=== PATIENT | female | born 1945 | race Caucasian/White ===

== ENCOUNTER 2019-01-27 11:39 | Outpatient (CLI) | payer MEDICARE ==
--- NOTE | 2019-01-27 14:24 | MMO ---
Bilateral MAMMO Bilat Screen [facility]. CLINICAL HISTORY: Patient is 74 years old and is seen for screening. VIEWS: The views performed were: . FILMS COMPARED: The present examination has been compared to prior imaging studies performed at [facility] on 10/21/2012, 11/03/2013, 11/19/2014 and 11/30/2015. This study has been interpreted with the assistance of computer-aided detection. MAMMOGRAM FINDINGS: The breasts are heterogeneously dense, which could obscure a lesion on mammography. There are stable benign appearing calcifications seen in both breasts. There are no suspicious masses, suspicious calcifications, or new areas of architectural distortion. IMPRESSION: THERE IS NO MAMMOGRAPHIC EVIDENCE OF MALIGNANCY. A ROUTINE FOLLOW-UP MAMMOGRAM IN 1 YEAR IS RECOMMENDED. THE RESULTS OF THIS EXAM WERE SENT TO THE PATIENT. ACR BI-RADS Category 2 - Benign finding MAMMOGRAPHY NOTE: 1. A negative mammogram report should not delay a biopsy if a dominant of clinically suspicious mass is present. 2. Approximately 10% to 15% of breast cancers are not detected by mammography. 3. Adenosis and dense breasts may obscure an underlying neoplasm. Reported by: CAPRI PEÑA MD Electonically Signed: [id number]
== END 2019-01-27 11:40 | disposition home or self-care (01) ==
LOC: BICMAMMO 11:39
PROVIDERS: ATTEND Family Medicine
DX: Z12.31 Encounter for screening mammogram for malignant neoplasm of breast (principal)
CPT/HCPCS: 77063; 77067

== ENCOUNTER 2019-03-27 06:29 | Outpatient (CLI) | payer MEDICARE ==
[2019-03-27 10:21] LABS: INR-International Normal Ratio 0.9; PTT 26.9 SEC (22.9-36.1); Prothrombin Time 12.3 SEC (12.0-14.7)
[2019-03-27 10:26] LABS: #Eosinphils 0.2 thou/uL (0.0-0.7); #Lymphocytes 2.1 thou/uL (1.20-3.40); #Monocytes 0.7 thou/uL (0.11-0.59); #Neutrophils 3.7 thou/uL (1.40-6.50); %Basophils 0.7 % (0.0-1.0); %Eosinophils 3.5 % (0.0-10.0); %Neutrophils 54.8 % (42.0-75.0); Hemoglobin 14.3 g/dL (12.0-16.0); Mean Corpuscular Hemoglobin 32.7 pg (27.0-31.0); Mean Platelet Volume 7.4 fL (7.4-10.4); Platelet Count 242 thou/uL (130-400); Red Blood Cell (RBC) Count 4.36 mill/uL (4.20-5.40); White Blood Cell (WBC) Count 6.7 thou/uL (4.8-10.8)
[2019-03-27 10:29] LABS: Bacteria/HPF None Seen HPF (None Seen); Bilirubin 2+ (Negative); Blood, Urine Negative (Negative); Clarity Turbid (Clear); Glucose, Urine (Dipstick) Normal (Negative); Leukocyte 500 Leu/uL (Negative); Nitrite Negative (Negative); Protein, Urine (Dipstick) 30 mg/dL (Neg-Trace); Transitional Epithelial 0-3 HPF (None Seen); Urobilinogen Normal mg/dL (Less than 2); WBC/HPF 21-50 HPF (0-3)
[2019-03-27 10:30] LABS: RBC/HPF 0-3 HPF (0-3)
[2019-03-27 10:41] LABS: Anion Gap 11 mmol/L (10-20); BUN (Urea Nitrogen) 24 mg/dL (9.8-20.1); Calc. Creatinine Clearance 0 mL/min (70-130); Calcium 9.1 mg/dL (7.8-10.44); Carbon Dioxide 25 mmol/L (23-31); Chloride 104 mmol/L (98-107); Estimated GFR-MDRD 72; Glucose 94 mg/dL (83-110); Sodium 136 mmol/L (136-145)
== END 2019-03-27 06:30 | disposition home or self-care (01) ==
LOC: LABBT 06:29
PROVIDERS: ATTEND Orthopaedic Surgery
DX: Z01.818 Encounter for other preprocedural examination (principal); I96 Gangrene, not elsewhere classified
CPT/HCPCS: 80048; 81001; 85025; 85610; 85730; 87081; 93005; 93010

== ENCOUNTER 2019-04-08 08:09 | Day surgery (SDC) | payer MEDICARE ==
[2019-04-08] MEDS ORDERED: Tranexamic Acid 1,000 MG/10 ML VIAL ONE (08:34)
[2019-04-08] MEDS ORDERED: Sodium Chloride 0.9% 100 ML ONE (08:34)
[2019-04-08] MEDS ORDERED: Midazolam HCl 2 mg/2 ml Vial ONE (08:46)
[2019-04-08] MEDS ORDERED: Fentanyl 100 MCG/2 ML VIAL ONE ×3 (08:46→10:54)
[2019-04-08] MEDS ORDERED: HYDROcodone/Acetaminophen 10/325 mg Tablet PO PRN ×3 (09:00→09:25)
[2019-04-08] MEDS ORDERED: Promethazine HCl 25 MG/ML VIAL IM PRN ×2 (09:00→09:25)
[2019-04-08] MEDS ORDERED: diphenhydrAMINE 25 MG CAP PO PRN ×2 (09:00→16:41)
[2019-04-08] MEDS ORDERED: Zolpidem Tartrate 5 MG TAB PO PRN ×2 (09:00→09:25)
[2019-04-08] MEDS ORDERED: Ondansetron PF 4 MG/2 ML Vial IVP PRN ×2 (09:00→09:25)
[2019-04-08] MEDS ORDERED: Acetaminophen 325 MG TAB PO PRN ×2 (09:00→09:25)
[2019-04-08] MEDS ORDERED: Acyclovir 800 mg Tablet PO PRN (09:02)
[2019-04-08] MEDS ORDERED: Ropivacaine HCl/PF 250 ML in Premix Bag 1 BAG NERVE BLCK SCH (09:25)
[2019-04-08] MEDS ORDERED: traMADol HCl 50 MG TAB PO PRN ×2 (09:25)
[2019-04-08] MEDS ORDERED: Fentanyl 100 MCG/2 ML VIAL IV PRN (09:26)
[2019-04-08] MEDS ORDERED: Ropivacaine 0.2% HCl/PF (40 MG/20 ML VIAL) ONE (09:53)
[2019-04-08] MEDS ORDERED: Dexamethasone 20 MG/5 ML VIAL ONE (09:53)
[2019-04-08] MEDS ORDERED: EPHEDRINE 25 MG/5 ML SYRINGE ONE (09:53)
[2019-04-08] MEDS ORDERED: Lidocaine 1% PF 5 ML VIAL ONE (09:53)
[2019-04-08] MEDS ORDERED: PROPOFOL 200 MG/20 ML VIAL ONE (09:53)
[2019-04-08] MEDS ORDERED: PHENYLEPHRINE-NS 100 MCG/ML 10 ML SYRINGE ONE (09:53)
[2019-04-08] MEDS ORDERED: Bupivacaine HCl 0.5%/Epinephrine 1:200,000/PF 30 ml Vial ONE (09:53)
--- NOTE | 2019-04-08 11:04 | OP ---
DATE OF PROCEDURE: 04/08/2019 This is Fritz Estrada PA-C dictating a report for Chaparro Grimm MD. PREOPERATIVE DIAGNOSIS: End-stage tricompartmental osteoarthritis, left knee. POSTOPERATIVE DIAGNOSIS: End-stage tricompartmental osteoarthritis, left knee. PROCEDURE PERFORMED: Cemented cruciate-sparing computer-assisted navigated left total knee arthroplasty. CONTINUOUS PROCESS COFFEE ROASTER: Fritz Estrada PA-C ANESTHESIA: General via LMA, augmented with indwelling adductor canal block and a single-shot sciatic block. COMPONENTS USED: [employer] Triathlon size 3 primary cemented cruciate-sparing femoral component with a size 3 primary cemented tibial base plate, 9 mm polyethylene fixed bearing insert, A29 patella button. TOURNIQUET TIME: 49 minutes at 300 mmHg ESTIMATED BLOOD LOSS: Less than 100. INPUT: 700 mL crystalloid. OUTPUT: 100 mL of clear yellow urine. COMPLICATIONS: None. SPECIMENS: None. DRAINS: None. COUNTS: Correct. FINDINGS: End-stage severe degenerative tricompartmental disease, [id number] arthrosis, periarticular osteophyte formation, large serous effusion hypertrophic synovium, changes consistent with degenerative genu varum. INDICATIONS FOR SURGERY: Abby is a 74-year-old female who has had progressive left knee pain and problems with standing and walking for the last 5 to 7 years. She has failed conservative management and elected to proceed with total knee arthroplasty as definitive treatment for her pain. PROCEDURE IN DETAIL: After informed consent was obtained in the preoperative holding area, the patient was taken to the operative suite where general anesthesia was induced. Once adequate level of general anesthesia was obtained, the patient was positioned and a well-padded tourniquet was placed around the left proximal thigh. The left lower extremity was then prepped and draped in the usual sterile fashion. Prior to exsanguination, a time-out was called and all members of the surgical team agreed upon site, surgeon, and patient. The extremity was then exsanguinated and the tourniquet was raised. A midline longitudinal incision was then made directly over the patella extending 2 fingerbreadths above the superior pole of the patella and 2 fingerbreadths inferior to the inferior patellar pole of the patella. Deeper subcutaneous layers were dissected sharply and local bleeding was controlled with Bovie electrocautery. A quad tendon longitudinal split was then made sharply and a median parapatellar arthrotomy was carried out both sharp and with Bovie electrocautery, carried down to 1 fingerbreadth medial to the tibial tubercle. The knee was then placed into flexion and the patella was everted nicely, and a copious fat pad ectomy was performed allowing for greater exposure of the tibia. The computer-assisted distal femoral fiducial was then placed and pinned firmly, and the distal femoral cutting guide was pinned firmly into place. The oscillating saw was then used to remove the appropriate amount of bone. The 4-in-1 cutting block was then placed on the distal femur and the oscillating saw was used to remove the appropriate amount of bone off the anterior, posterior, and chamfer cuts. After completion of bone cuts, the anterior cruciate ligament was resected sharply and the posterior cruciate ligament retractor was placed and the tibia was subluxed for better exposure. Partial meniscectomies were carried out, and the tibial computer-assisted fiducial was pinned, and the cutting guide was placed. Oscillating saw was then used to remove the bone, with Hohmann retractors used to take care and protect the collateral ligaments. After the tibial resection was performed, a laminar commercial counsel was placed in between the freshened bone cuts. The knee placed at 90 degrees and further bilateral meniscectomies were carried out, and the curved osteotome and curettage were used to remove any excess bone spurs in the posterior compartment. The trial femoral component, tibial baseplate were placed with the appropriate polyethylene trial insert with an appropriate polyethylene spacer and patellar button. The knee was taken through full range of motion with flexion and extension from 0 to 90 degrees and patellar broach squarely in the trochlea without any squinting or subluxation noted. The knee was also stable to varus and valgus stressing at 0, 15, 45, and 90 degrees of flexion. The drawer was negative. All trial components were then removed and the keel punch was used to provide the appropriate defect in the tibia with a mallet. The freshened bone cuts were copiously irrigated with pulsatile lavage of about 1.5 L to remove all excess debris. The freshened bone cuts were then dried with suction and lap sponge. The knee was placed in flexion and retractors were placed to provide access to all bone cuts. Tobramycin-impregnated methyl methacrylate cement was then placed on the freshened bone cuts and implants which were malleted firmly into place. Curettage and [place] elevators were used to remove any excess bone cement. The knee was placed into full extension and the patellar button was placed under compression, and the cement was allowed to cure. Once completed, the components were again taken through full range of motion and copious irrigation of the knee was carried out with another liter of normal saline. All components were inspected fully with full range of motion and varus and valgus stressing. There was no laxity noted and full extension was observed clinically. Primary closure was accomplished with #2 interrupted Vicryl stitch of the arthrotomy defect. This was oversewn with a #2 running Quill barbed stitch. The subcutaneous layer was then closed with a running 0 barbed Monocryl stitch and skin closure accomplished with a running subcuticular 3-0 Monocryl barbed Quill stitch and augmented with cement on the skin. Tourniquet was lowered. Good spontaneous return of distal pulses was noted clinically and a sterile dressing was applied to the incision. The procedure was terminated without any complications. The patient was awakened in the operative suite and taken to the recovery room in stable condition. Job ID: [id number]
--- NOTE | 2019-04-08 12:00 | RAD ---
LEFT KNEE 2 VIEWS: Date: 04/08/2019 HISTORY: Postop evaluation. Knee replacement. FINDINGS: Postop changes are noted. Knee replacement is noted. Components appear in adequate position and align ment. IMPRESSION: Postop changes of knee. POS: [facility]
[2019-04-08] MEDS: Sodium Chloride 0.9% 1,000 ML IV SCH ×2 (12:07→12:22)
[2019-04-08] MEDS: Aspirin 81 mg Enteric Coated Tablet PO SCH ×2 (12:07→21:14)
[2019-04-08] MEDS: Trospium 20 MG TAB PO SCH ×2 (12:18→21:14)
[2019-04-08] MEDS: Ketorolac Tromethamine 30 MG/ML VIAL IVP SCH ×2 (12:22→17:31)
[2019-04-08 13:25] VITALS: BMI 32.1
[2019-04-08] MEDS ORDERED: Ketorolac Tromethamine 30 MG/ML VIAL IVP SCH (14:00)
[2019-04-08] MEDS ORDERED: Benzonatate 100 MG CAP PO PRN (16:41)
[2019-04-08] MEDS ORDERED: Labetalol HCl 100 MG/20 ML VIAL SLOW IVP PRN (16:41)
[2019-04-08] MEDS ORDERED: Melatonin 3 MG TAB PO PRN (16:41)
[2019-04-08] MEDS ORDERED: Docusate 100 MG CAP PO PRN (16:41)
[2019-04-08] MEDS: CEFAZOLIN 2 GM in Premix Bag 1 BAG IVPB SCH (16:42)
--- NOTE | 2019-04-08 18:14 | PDOC.HHP ---
Hospitalist HPI - History of Present Illness Severe knee pain History of Present Illness: 74-year-old female with past medical history of coronary artery disease, hypertension, hyperlipidemia, hypothyroidism, and severe osteoarthritis of the knee presents for elective knee replacement. Patient presents to the [facility] on 04/08/2019 elective total knee replacement of the left knee. Patient has been on medical therapies for severe neck knee arthritis without relief. Patient with ataxia and limitations to her activities of daily living secondary to severe knee pain. Has patient has failed medical management of the knee was warranted that she have knee replacement. Patient went to the operating room on 04/08/2019 please see full operative report for details, patient tolerated the procedure well without intraoperative complications. I find the patient in the surgical unit postoperatively she is sitting upright in the bed eating her dinner in no apparent distress. Patient tells me she has zero pain, the nerve block seems to be effective. Patient has not worked with therapy yet, she has not put any pressure on the knee. Patient has been using her incentive spirometry everyone our as directed after education by nursing staff. Patient has SCDs on the lower extremity. Hospitalist ROS - Review of Systems All other systems reviewed; all pertinent +/- noted in HPI/Subj - Medication Medications: Active Medications Generic Name Dose Route Start Last Admin Trade Name Freq PRN Reason Stop Dose Admin Aspirin 81 mg 04/08/19 09:00 04/08/19 12:07 Ecotrin PO Not Given BID BAILEE Cefazolin Sodium/Dextrose 2 gm 50 mls @ 100 mls/hr 04/08/19 17:00 04/08/19 16 :42 / Device IVPB 04/09/19 01:29 50 mls 0100,1700 BAILEE Administration Sodium Chloride 1,000 mls @ 100 mls/hr 04/08/19 09:00 04/08/19 12:22 Normal Saline 0.9% IV 1,000 mls .Q10H BAILEE Administration Ketorolac Tromethamine 15 mg 04/08/19 12:00 04/08/19 17:31 Toradol IVP 04/10/19 06:01 15 mg Q6HR BAILEE Administration Trospium 20 mg 04/08/19 09:00 04/08/19 12:18 Trospium PO Not Given BID BAILEE Hospitalist History - Past Medical History Source: patient, family Cardiac: reports: CAD, HTN, Hyperlipidemia Musculoskeletal: reports: Osteoarthritis Endocrine: reports: Hypothyroidism - Past Surgical History Past Surgical History: reports: Total Knee Replacement - Family History Family History: reports: hypertension - Social History Smoking Status: Never smoker Alcohol: reports: None Drugs: reports: none Living Situation: With Family Domestic Violence: Negative Activity level: independent ambulation - Exam General Appearance: NAD, awake alert Eye: PERRL ENT: normocephalic atraumatic, moist mucosa Neck: supple, symmetric, no lymphadenopathy Heart: no murmur, no gallops, no rubs Respiratory: CTAB, no wheezes, no rales, no ronchi, normal chest expansion, no tachypnea Gastrointestinal: soft, non-tender, non-distended, no guarding, no rigidity Extremities: 1+ LE edema Extremities - other findings: Left knee dressing is clean, dry, and intact. Ice pack over top Skin: no rashes Neurological: cranial nerve grossly intact, no focal deficits Musculoskeletal: generalized weakness Psychiatric: normal affect, normal behavior, A&O x 3 Hospitalist H&P A/P - Problem (1) Knee osteoarthritis Code(s): M17.10 - UNILATERAL PRIMARY OSTEOARTHRITIS, UNSPECIFIED KNEE Status: Acute (2) Knee pain Code(s): M25.569 - PAIN IN UNSPECIFIED KNEE Status: Acute (3) Ataxia Code(s): R27.0 - ATAXIA, UNSPECIFIED Status: Acute (4) HTN (hypertension) Code(s): I10 - ESSENTIAL (PRIMARY) HYPERTENSION Status: Acute (5) CAD (coronary artery disease) Code(s): I25.10 - ATHSCL HEART DISEASE OF [place] CORONARY ARTERY W/O ANG PCTRS Status: Acute (6) HLD (hyperlipidemia) Code(s): E78.5 - HYPERLIPIDEMIA, UNSPECIFIED Status: Acute (7) Hypothyroid Code(s): E03.9 - HYPOTHYROIDISM, UNSPECIFIED Status: Acute - Plan Plan: Plan: admit to orthopedic unit orthopedic surgery consultation, recommendations appreciated perioperative care wound care physical therapy evaluation and treatment occupational Therapy evaluation treatment pain control blood pressure control continue home medications as able G.I. prophylaxis DVT prophylaxis
[2019-04-08] MEDS ORDERED: guaiFENesin ER 600 MG TAB PO PRN (21:00)
[2019-04-08] MEDS: Atorvastatin Calcium 40 MG TAB PO SCH (21:14)
[2019-04-08] MEDS ORDERED: Ramipril 5 MG CAP PO SCH (23:45)
[2019-04-09] MEDS: Ketorolac Tromethamine 30 MG/ML VIAL IVP SCH ×4 (00:08→17:59)
[2019-04-09] MEDS: CEFAZOLIN 2 GM in Premix Bag 1 BAG IVPB SCH (00:09)
[2019-04-09] MEDS: Sodium Chloride 0.9% 1,000 ML IV SCH (04:44)
[2019-04-09] MEDS: Levothyroxine 150 MCG TAB PO SCH (05:48)
[2019-04-09] MEDS: Multivitamin W/ Minerals 1 TAB PO SCH (08:51)
[2019-04-09] MEDS: Ubidecarenone 50 MG CAP PO SCH (08:51)
[2019-04-09] MEDS: Calcium Carbonate 600 MG + Vit D TAB PO SCH (08:52)
[2019-04-09] MEDS: Vit A,C & E/Lutein/Minerals Tablet PO SCH (08:52)
[2019-04-09] MEDS: Loratadine 10 MG TAB PO SCH (08:52)
[2019-04-09] MEDS: Senokot S 8.6-50 MG TAB PO SCH ×2 (08:52→20:58)
[2019-04-09] MEDS: Aspirin 81 mg Enteric Coated Tablet PO SCH ×2 (08:53→20:57)
[2019-04-09] MEDS: Ferrous Gluconate 324 MG TAB PO SCH ×2 (08:53→20:58)
[2019-04-09] MEDS: HYDROcodone/Acetaminophen 10/325 mg Tablet PO PRN ×2 (08:57→14:17)
[2019-04-09] MEDS ORDERED: Ramipril 5 MG CAP PO SCH ×2 (09:00→21:00)
[2019-04-09] MEDS ORDERED: Non-Formulary Item 1 EACH (Multivitamin/Iron/Folic Acid [Centrum Adults Tablet] 1 EACH) PO SCH (09:00)
[2019-04-09] MEDS ORDERED: Aspirin 81 mg Enteric Coated Tablet PO SCH (09:00)
[2019-04-09] MEDS: Trospium 20 MG TAB PO SCH ×2 (09:37→20:57)
--- NOTE | 2019-04-09 13:42 | PDOC.HOSPP ---
- Subjective Encounter Date: 04/09/19 Encounter Time: 08:20 Subjective: Pt seen for followup re: hypertension. Feels well, no complaints. - Objective Vital Signs & Weight: Vital Signs (12 hours) Temp Pulse Resp BP Pulse Ox 04/09/19 13:00 98.0 F 66 106/63 93 L 04/09/19 08:00 98.3 F 79 18 125/88 95 04/09/19 04:11 98.6 F 70 16 123/75 96 Weight Weight 170 lb I&O: 04/08/19 04/09/19 04/10/19 06:59 06:59 06:59 Intake Total 2250 300 Output Total 1600 Balance 650 300 Additional Labs: Labs and MARs reviewed by ma Hospitalist ROS - Review of Systems Cardiovascular: denies: chest pain, palpitations, orthopnea, paroxysmal noc. dyspnea, edema, light headedness Gastrointestinal: denies: nausea, vomiting, abdominal pain, diarrhea, constipation, melena, hematochezia - Medication Medications: Active Medications Generic Name Dose Route Start Last Admin Trade Name Freq PRN Reason Stop Dose Admin Hydrocodone Bitart/Acetaminophen 2 tab 04/08/19 09:25 04/09/19 08:57 [place] 10/325 PO 2 tab Q4H PRN Administration PAIN (4-6) Aspirin 81 mg 04/08/19 09:00 04/09/19 08:53 Ecotrin PO 81 mg BID BAILEE Administration Atorvastatin Calcium 40 mg 04/08/19 21:00 04/08/19 21:14 Lipitor PO 40 mg HS BAILEE Administration Calcium/Vitamin D 1 tab 04/09/19 09:00 04/09/19 08:52 Caltrate 600 + Vit D PO 1 tab DAILY BAILEE Administration Coenzyme Q10 200 mg 04/09/19 09:00 04/09/19 08:51 Coenzyme Q10 PO 200 mg DAILY BAILEE Administration Diltiazem HCl 180 mg 04/09/19 09:00 04/09/19 08:51 Cardizem Cd PO 180 mg DAILY BAILEE Administration Ferrous Gluconate 324 mg 04/09/19 09:00 04/09/19 08:53 Fergon PO 324 mg BID BAILEE Administration Ropivacaine 250 ml/ Device 250 mls @ 10 mls/hr 04/08/19 09:25 04/09/19 11:36 NERVE BLCK 04/11/19 09:24 250 mls INF BAILEE Administration Iron/Minerals/Multivitamins 1 tab 04/09/19 09:00 04/09/19 08:51 Theragran M PO 1 tab DAILY BAILEE Administration Isosorbide Mononitrate 60 mg 04/09/19 09:00 04/09/19 08:53 Imdur PO 60 mg DAILY BAILEE Administration Ketorolac Tromethamine 15 mg 04/08/19 12:00 04/09/19 12:19 Toradol IVP 04/10/19 06:01 15 mg Q6HR BAILEE Administration Levothyroxine Sodium 150 mcg 04/09/19 06:00 04/09/19 05:48 Synthroid PO 150 mcg 0600 BAILEE Administration Loratadine 10 mg 04/09/19 09:00 04/09/19 08:52 Claritin PO 10 mg DAILY BAILEE Administration Multivitamins/Minerals 2 tab 04/09/19 09:00 04/09/19 08:52 Ocuvite With Lutein PO 2 tab DAILY BAILEE Administration Pantoprazole Sodium 40 mg 04/09/19 09:00 04/09/19 08:53 Protonix PO 40 mg DAILY BAILEE Administration Senna/Docusate Sodium 2 tab 04/09/19 09:00 04/09/19 08:52 Senokot S PO 2 tab BID BAILEE Administration Trospium 20 mg 04/08/19 09:00 04/09/19 09:37 Trospium PO 20 mg BID BAILEE Administration - Exam General - other findings: Obese Eye: anicteric sclera ENT: moist mucosa Neck: supple, symmetric Heart: RRR, no rubs Respiratory: CTAB, normal chest expansion Gastrointestinal: soft, non-tender Skin: no rashes Musculoskeletal - other findings: s/p L knee surgery Psychiatric: normal affect, normal behavior Hosp A/P - Plan Hospitalist H&P A/P - Assessment (1) HTN (hypertension) Code(s): I10 - ESSENTIAL (PRIMARY) HYPERTENSION Status: Chronic (2) CAD (coronary artery disease) Code(s): I25.10 - ATHSCL HEART DISEASE OF [place] CORONARY ARTERY W/O ANG PCTRS Status: Chronic (3) HLD (hyperlipidemia) Code(s): E78.5 - HYPERLIPIDEMIA, UNSPECIFIED Status: Chronic (4) Hypothyroid Code(s): E03.9 - HYPOTHYROIDISM, UNSPECIFIED Status: Chronic - Plan Physical therapy evaluation and treatment Occupational Therapy evaluation treatment HTN controlled Continue synthroid. DVT prophylaxis and pain management per orthopedic surgery service.
--- NOTE | 2019-04-09 14:06 | PRG ---
DATE OF SERVICE: 04/09/2019 SUBJECTIVE: Abby is a 74-year-old female, who is postop day 1 from a left total knee arthroplasty. She is relatively comfortable. She was able to ambulate over 100 feet yesterday. Her pain is relatively well controlled. OBJECTIVE: VITAL SIGNS: Temperature 98.3, pulse 79, respiratory rate is 18 and unlabored, O2 saturation 95% on room air, and blood pressure is 125/88. NEUROLOGIC: She is alert and oriented to person, place, time, and situation, responsive and appropriate with examiner. Nonfocal. Her incision is clean. No erythema. No strike through. She is neurovascularly intact in both lower extremities. LABORATORY DATA: Hemoglobin and hematocrit not obtained. IMPRESSION: A 74-year-old female, postop day 1 left total knee arthroplasty. PLAN: Continue current care. Probable discharge home tomorrow. Job ID: [id number]
[2019-04-09] MEDS: Atorvastatin Calcium 40 MG TAB PO SCH (20:58)
[2019-04-10] MEDS: Ketorolac Tromethamine 30 MG/ML VIAL IVP SCH ×2 (00:24→05:00)
[2019-04-10] MEDS: Levothyroxine 150 MCG TAB PO SCH (05:00)
[2019-04-10 05:12] LABS: Hemoglobin 11.3 g/dL (12.0-16.0)
[2019-04-10] MEDS: HYDROcodone/Acetaminophen 10/325 mg Tablet PO PRN ×2 (08:34→12:49)
[2019-04-10] MEDS: Senokot S 8.6-50 MG TAB PO SCH (08:36)
[2019-04-10] MEDS: Vit A,C & E/Lutein/Minerals Tablet PO SCH (08:36)
[2019-04-10] MEDS: Ubidecarenone 50 MG CAP PO SCH (08:36)
[2019-04-10] MEDS: Ferrous Gluconate 324 MG TAB PO SCH (08:37)
[2019-04-10] MEDS: Multivitamin W/ Minerals 1 TAB PO SCH (08:37)
[2019-04-10] MEDS: Calcium Carbonate 600 MG + Vit D TAB PO SCH (08:37)
[2019-04-10] MEDS: Loratadine 10 MG TAB PO SCH (08:37)
[2019-04-10] MEDS: Aspirin 81 mg Enteric Coated Tablet PO SCH (08:37)
[2019-04-10] MEDS: Trospium 20 MG TAB PO SCH (08:52)
[2019-04-10 10:45] VITALS: TEMP 98.2
[2019-04-10 14:27] VITALS: BP 142/72
--- NOTE | 2019-04-11 09:13 | DIS ---
DATE OF ADMISSION: 04/08/2019 DATE OF DISCHARGE: 04/10/2019 CONSULTANTS ON THE CASE: Include [facility] and [facility]. PREOPERATIVE DIAGNOSIS: End-stage tricompartmental osteoarthritis of the left knee. POSTOPERATIVE DIAGNOSIS: End-stage tricompartmental osteoarthritis of the left knee. PROCEDURE PERFORMED: Cemented cruciate sparing computer-assisted navigation, left total knee arthroplasty. BRIEF HOSPITAL COURSE: This is a 74-year-old female, who was indicated for the above-mentioned procedure after failing outpatient conservative measures. She did well in the operative suite and then postoperatively she was admitted to [facility] [address] [address] here at [facility]. She did work with physical and occupational therapist. She got out of bed on postoperative day 0 to stand. She did not have any difficulty with this and progressed quite nicely with occupational and physical therapy. Her pain was managed by [facility]. On postoperative day #2, the patient was discharged home with outpatient physical therapy followup. No complications were incurred throughout her hospital stay. DISCHARGE DISPOSITION: Home. DISCHARGE CONDITION: Stable. DISCHARGE INSTRUCTIONS: The patient will follow up as scheduled with Dr. Grimm. She will also follow up as scheduled with outpatient physical therapy. She will keep her surgical site clean, dry, and intact until her followup with Dr. Grimm. DISCHARGE MEDICATIONS: See FOX. Job ID: [id number]
== END 2019-04-10 14:35 | disposition home or self-care (01) ==
LOC: SDC 08:09 → SJJU 09:04 → SDC 04-10 14:35
PROVIDERS: ATTEND Orthopaedic Surgery
PROC: 0SRD0J9 Replacement of Left Knee Joint with Synthetic Substitute, Cemented, Open Approach (ICD-10-PCS; principal; 2019-04-08)
PROC: 8E0YXBZ Computer Assisted Procedure of Lower Extremity (ICD-10-PCS; 2019-04-08)
PROC: 3E0T3BZ Introduction of Anesthetic Agent into Peripheral Nerves and Plexi, Percutaneous Approach (ICD-10-PCS; 2019-04-08)
PROC: 3E0T3BZ Introduction of Anesthetic Agent into Peripheral Nerves and Plexi, Percutaneous Approach (ICD-10-PCS; 2019-04-08)
DX: M17.12 Unilateral primary osteoarthritis, left knee (principal); G89.18 Other acute postprocedural pain; M87.052 Idiopathic aseptic necrosis of left femur; I25.10 Atherosclerotic heart disease of native coronary artery without angina pectoris; I10 Essential (primary) hypertension; E78.5 Hyperlipidemia, unspecified; I25.2 Old myocardial infarction; E03.9 Hypothyroidism, unspecified; E66.9 Obesity, unspecified; Z68.32 Body mass index [BMI] 32.0-32.9, adult; Z79.899 Other long term (current) drug therapy; Z88.0 Allergy status to penicillin; Z88.2 Allergy status to sulfonamides; Z88.8 Allergy status to other drugs, medicaments and biological substances
CPT/HCPCS: 20985; 27447; 64445; 64448; 73560; 85014; 85018; 97116 ×3; 97139 ×2; 97150 ×2; 97530; 98961; C1713; C1776; 36415; J0670; J0690; J1100; J1885; J2001; J2250; J2704; J2795; J3010; J3370; J3490

== ENCOUNTER 2020-01-30 09:04 | Outpatient (CLI) | payer MEDICARE ==
--- NOTE | 2020-01-30 10:05 | MMO ---
Bilateral MAMMO Bilat Screen [facility]. CLINICAL HISTORY: Patient is 75 years old and is seen for screening. The patient has no family history of breast cancer. The patient has no personal history of cancer. The patient has a history of right Excisional Biopsy in 1970 - benign. VIEWS: The views performed were: bilateral craniocaudal with tomosynthesis and bilateral mediolateral oblique with tomosynthesis. FILMS COMPARED: The present examination has been compared to prior imaging studies performed at [facility] on 11/03/2013, 11/19/2014, 11/30/2015 and 01/27/2019. This study has been interpreted with the assistance of computer-aided detection. MAMMOGRAM FINDINGS: The breasts are heterogeneously dense, which could obscure a lesion on mammography. Benign calcifications are noted bilaterally. There are no suspicious masses, suspicious calcifications, or new areas of architectural distortion. IMPRESSION: THERE IS NO MAMMOGRAPHIC EVIDENCE OF MALIGNANCY. A ROUTINE FOLLOW-UP MAMMOGRAM IN 1 YEAR IS RECOMMENDED. THE RESULTS OF THIS EXAM WERE SENT TO THE PATIENT. ACR BI-RADS Category 2 - Benign finding MAMMOGRAPHY NOTE: 1. A negative mammogram report should not delay a biopsy if a dominant of clinically suspicious mass is present. 2. Approximately 10% to 15% of breast cancers are not detected by mammography. 3. Adenosis and dense breasts may obscure an underlying neoplasm. Reported by: FAITH OCONNOR MD Electonically Signed: [id number]
== END 2020-01-30 09:05 | disposition home or self-care (01) ==
LOC: BICMAMMO 09:04
PROVIDERS: ATTEND Family Medicine
DX: Z12.31 Encounter for screening mammogram for malignant neoplasm of breast (principal); Z91.89 Other specified personal risk factors, not elsewhere classified
CPT/HCPCS: 77063; 77067

== ENCOUNTER 2021-02-01 08:51 | Outpatient (CLI) | payer MEDICARE | END 2021-02-01 08:52 | disposition home or self-care (01) | LOC: BICMAMMO 08:51 | PROVIDERS: ATTEND Family Medicine | DX: Z12.31 Encounter for screening mammogram for malignant neoplasm of breast (principal); Z91.89 Other specified personal risk factors, not elsewhere classified | CPT/HCPCS: 77063; 77067 ==

== ENCOUNTER 2022-02-22 13:19 | Outpatient (CLI) | payer MEDICARE | END 2022-02-22 13:20 | disposition home or self-care (01) | LOC: BICMAMMO 13:19 | PROVIDERS: ATTEND Family Medicine | DX: Z12.31 Encounter for screening mammogram for malignant neoplasm of breast (principal); Z91.89 Other specified personal risk factors, not elsewhere classified | CPT/HCPCS: 77063; 77067 ==

== ENCOUNTER 2022-07-30 15:10 | Emergency (ER) | payer MEDICARE ==
[2022-07-30] MEDS ORDERED: Ketorolac Tromethamine 30 MG/ML VIAL ONE (18:40)
[2022-07-30] MEDS ORDERED: predniSONE 20 MG TAB ONE (18:40)
== END 2022-07-30 19:46 | disposition home or self-care (01) ==
LOC: ERS 15:10
DX: M25.551 Pain in right hip (principal); I25.10 Atherosclerotic heart disease of native coronary artery without angina pectoris; E78.5 Hyperlipidemia, unspecified; I10 Essential (primary) hypertension
CPT/HCPCS: 96372; J1885; J7512

== ENCOUNTER 2023-03-08 23:27 | Emergency (ER) | payer MEDICARE ==
[2023-03-08] MEDS ORDERED: Acetaminophen 500 MG TAB ONE (23:49)
[2023-03-08] MEDS ORDERED: Ondansetron PF 4 MG/2 ML Vial ONE (23:49)
[2023-03-09 00:46] LABS: #Monocytes 0.6 thou/uL (0.11-0.59); #Neutrophils 4.4 thou/uL (1.40-6.50); %Basophils 0.3 % (0.0-1.0); %Eosinophils 0.2 % (0.0-10.0); %Lymphocytes 23.4 % (21.0-51.0); %Monocytes 8.7 % (0.0-10.0); %Neutrophils 67.2 % (42.0-75.0); Hematocrit 39.8 % (36.0-47.0); Hemoglobin 13.7 g/dL (12.0-16.0); Mean Corpuscular HGB CONC 34.4 g/dL (32.0-36.0); Mean Corpuscular Hemoglobin 33.7 pg (27.0-31.0); Mean Platelet Volume 10.1 fL (7.4-10.4); Platelet Count 185 10x3/uL (130-400); RBC Distribution Width 13.8 % (11.5-14.5); Red Blood Cell (RBC) Count 4.06 mill/uL (4.20-5.40); White Blood Cell (WBC) Count 6.5 10x3/uL (4.8-10.8)
[2023-03-09 01:08] LABS: ALT (SGPT) 27 U/L (8-55); AST (SGOT) 26 U/L (5-34); Albumin 3.7 g/dL (3.4-4.8); Alkaline Phosphatase 105 U/L (40-110); Anion Gap 16 mmol/L (10-20); BUN (Urea Nitrogen) 26 mg/dL (9.8-20.1); Bilirubin, Total 0.4 mg/dL (0.2-1.2); Calc. Creatinine Clearance 0 mL/min (70-130); Calcium 8.8 mg/dL (7.8-10.44); Carbon Dioxide 19 mmol/L (23-31); Chloride 103 mmol/L (98-107); Estimated GFR 76; Globulin 2.6 g/dL (2.4-3.5); Glucose 101 mg/dL (83-110); Lipase 26 U/L (8-78); Potassium 4.1 mmol/L (3.5-5.1); Protein, Total 6.3 g/dL (5.8-8.1); Sodium 134 mmol/L (136-145)
[2023-03-09 02:56] LABS: Bilirubin Moderate (Negative); Blood, Urine Moderate (Negative); Glucose, Urine (Dipstick) Negative (Negative); Ketone, Urine 40 mg/dL (Negative); Leukocyte Trace (Negative); Nitrite Negative (Negative); Protein, Urine (Dipstick) Negative (Neg-Trace)
[2023-03-09 02:57] LABS: Clarity Cloudy (Clear)
[2023-03-09 03:03] LABS: Bacteria/HPF 4+ HPF (None Seen); CAUTI Indications for Culture Dysuria,urgency,freq; Transitional Epithelial 0-3 HPF (None Seen); WBC/HPF Greater than 50 HPF (0-3)
[2023-03-09 03:05] LABS: Urine Culture Reflex Yes Yes
[2023-03-09 03:23] LABS: SARS-CoV-2 NAA Rapid Test DETECTED (NotDetected)
[2023-03-09] MEDS ORDERED: Sodium Chloride 0.9% 100 ML ONE (03:39)
[2023-03-09] MEDS ORDERED: cefTRIAXone (ROCEPHIN) 1 GM VIAL ONE (03:39)
== END 2023-03-09 04:36 | disposition home or self-care (01) ==
LOC: ERS 23:27
DX: U07.1 COVID-19 (principal); N39.0 Urinary tract infection, site not specified; I10 Essential (primary) hypertension; I25.10 Atherosclerotic heart disease of native coronary artery without angina pectoris; I25.2 Old myocardial infarction
CPT/HCPCS: 74177; 80053; 81001; 83605; 83690; 85025; 87077; 87086; 96361; 96365; 96375; J0696; J2405; J3490

== ENCOUNTER 2023-08-07 10:48 | Outpatient (CLI) | payer MEDICARE | END 2023-08-07 10:49 | disposition home or self-care (01) | LOC: SCSMRI 10:48 | PROVIDERS: ATTEND Family Medicine | DX: S46.212A Strain of muscle, fascia and tendon of other parts of biceps, left arm, initial encounter (principal); M25.512 Pain in left shoulder; M65.812 Other synovitis and tenosynovitis, left shoulder; M25.412 Effusion, left shoulder; M94.212 Chondromalacia, left shoulder; M25.712 Osteophyte, left shoulder; M25.812 Other specified joint disorders, left shoulder ==

== ENCOUNTER 2023-12-24 09:59 | Outpatient (CLI) | payer MEDICARE | END 2023-12-24 10:00 | disposition home or self-care (01) | LOC: BICCT 09:59 | PROVIDERS: ATTEND Orthopaedic Surgery | DX: M17.11 Unilateral primary osteoarthritis, right knee (principal) ==

== ENCOUNTER 2024-01-01 08:37 | Outpatient (CLI) | payer MEDICARE ==
[2024-01-01 10:30] LABS: #Basophils 0.05 10x3/uL (0.0-0.2); %Basophils 0.6 % (0.0-1.0); %Eosinophils 2.1 % (0.0-10.0); %Lymphocytes 22.5 % (21.0-51.0); %Monocytes 8.6 % (0.0-10.0); %Neutrophils 65.6 % (42.0-75.0); Hematocrit 40.8 % (36.0-47.0); Hemoglobin 13.7 g/dL (12.0-16.0); Mean Corpuscular HGB CONC 33.6 g/dL (32.0-36.0); Mean Corpuscular Hemoglobin 34.6 pg (27.0-31.0); Mean Platelet Volume 9.2 fL (7.4-10.4); Platelet Count 252 10x3/uL (130-400); RBC Distribution Width 13.3 % (11.5-14.5); Red Blood Cell (RBC) Count 3.96 mill/uL (4.20-5.40)
[2024-01-01 10:46] LABS: PTT 26.7 sec (22.9-36.1); Prothrombin Time 12.7 sec (12.0-14.7)
[2024-01-01 10:49] LABS: Anion Gap 13 mmol/L (10-20); BUN (Urea Nitrogen) 16 mg/dL (9.8-20.1); Calc. Creatinine Clearance 0 mL/min (70-130); Calcium 9.4 mg/dL (7.8-10.44); Carbon Dioxide 21 mmol/L (23-31); Chloride 106 mmol/L (98-107); Estimated GFR 76; Glucose 116 mg/dL (83-110); Potassium 4.5 mmol/L (3.5-5.1); Sodium 135 mmol/L (136-145)
== END 2024-01-01 08:38 | disposition home or self-care (01) ==
LOC: LABBT 08:37
PROVIDERS: ATTEND Orthopaedic Surgery
DX: Z01.818 Encounter for other preprocedural examination (principal); M17.11 Unilateral primary osteoarthritis, right knee
CPT/HCPCS: 80048; 85025; 85610; 85730; 87081; 93005; 93010

== ENCOUNTER 2024-01-08 09:16 | Day surgery (SDC) | payer MEDICARE ==
[2024-01-01 09:04] VITALS: BMI 31.1
[2024-01-08] MEDS ORDERED: Bupivacaine 0.25% HCL 30 ML VIAL ONE (09:19)
[2024-01-08] MEDS ORDERED: EPINEPHrine 1 MG/ML VIAL ONE (09:19)
[2024-01-08] MEDS ORDERED: Ropivacaine 0.5% HCl/PF (150 MG/30 ML VIAL) ONE (09:39)
[2024-01-08] MEDS ORDERED: Midazolam HCl 2 mg/2 ml Vial ONE (09:39)
[2024-01-08] MEDS ORDERED: fentaNYL 50 mcg/mL 1 mL Vial ONE ×3 (09:39→12:24)
[2024-01-08] MEDS ORDERED: Sodium Chloride 0.9% 100 ML ONE (09:41)
[2024-01-08] MEDS ORDERED: Tranexamic Acid 1,000 MG/10 ML VIAL ONE (09:41)
[2024-01-08] MEDS ORDERED: Vancomycin 1 GM/200 ML (FROZEN) BAG ONE (09:41)
[2024-01-08] MEDS ORDERED: CEFAZOLIN 2 GM VIAL ONE (09:41)
[2024-01-08] MEDS ORDERED: Ondansetron PF 4 MG/2 ML Vial ONE ×2 (09:56→12:21)
[2024-01-08] MEDS ORDERED: Dexamethasone 4 mg/ml Vial ONE (09:56)
[2024-01-08] MEDS ORDERED: PROPOFOL 20 ML ONE (09:56)
[2024-01-08] MEDS ORDERED: fentaNYL PF 100 MCG/2 ML SYRINGE ONE (09:56)
[2024-01-08] MEDS ORDERED: fentaNYL 50 mcg/mL 1 mL Vial SLOW IVP PRN (10:30)
[2024-01-08] MEDS ORDERED: Ropivacaine 0.2% 550 ML 550 ML NERVE BLCK SCH (10:30)
[2024-01-08] MEDS ORDERED: traMADol HCl 50 MG TAB PO PRN ×2 (10:30)
[2024-01-08] MEDS ORDERED: Promethazine HCl 25 MG/ML VIAL IM PRN (10:30)
[2024-01-08] MEDS ORDERED: PHENYLEPHRINE-NS 100 MCG/ML 10 ML SYRINGE ONE (11:06)
[2024-01-08] MEDS ORDERED: HYDROmorphone 0.5 MG/0.5 ML SYRINGE ONE ×3 (13:13→14:36)
[2024-01-08] MEDS ORDERED: Acetaminophen 325 MG TAB PO PRN (13:31)
[2024-01-08] MEDS ORDERED: Acyclovir 800 mg Tablet PO PRN (13:31)
[2024-01-08] MEDS ORDERED: diphenhydrAMINE 25 MG CAP PO PRN (13:31)
[2024-01-08] MEDS ORDERED: Zolpidem Tartrate 5 MG TAB PO PRN (13:31)
[2024-01-08] MEDS: Ketorolac Tromethamine 30 MG (1 mL) VIAL IVP SCH (16:11)
[2024-01-08] MEDS: Sodium Chloride 0.9% 1,000 ML IV SCH (16:13)
[2024-01-08] MEDS: Ondansetron PF 4 MG/2 ML Vial IVP PRN (16:14)
[2024-01-08 16:41] VITALS: TEMP 97.6
[2024-01-08] MEDS: HYDROcodone/Acetaminophen 10/325 mg Tablet PO PRN ×2 (17:11→21:16)
[2024-01-08] MEDS: CEFAZOLIN 2 GM in Sodium Chloride 0.9% 100 ML IVPB SCH (17:12)
[2024-01-08 19:20] VITALS: BP 127/71
[2024-01-08] MEDS: guaiFENesin ER 600 MG TAB PO SCH (20:57)
[2024-01-08] MEDS: Gabapentin 300 MG CAP PO SCH (20:57)
[2024-01-08] MEDS: Ramipril 5 MG CAP PO SCH (20:57)
[2024-01-08] MEDS: Trospium 20 MG TAB PO SCH (20:57)
[2024-01-08] MEDS: Atorvastatin Calcium 40 MG TAB PO SCH (20:58)
[2024-01-08] MEDS: Azelastine 137 MCG/NASAL Spray 30 ML NS SCH (20:58)
[2024-01-08] MEDS: Aspirin 81 mg Enteric Coated Tablet PO SCH (20:58)
[2024-01-09] MEDS ORDERED: Levothyroxine 150 MCG TAB PO SCH (06:00)
[2024-01-09] MEDS ORDERED: Ferrous Gluconate 324 MG TAB PO SCH (08:00)
[2024-01-09] MEDS ORDERED: Calcium Carbonate 600 MG + Vit D TAB PO SCH (09:00)
[2024-01-09] MEDS ORDERED: Pantoprazole DR 40 MG TAB PO SCH (09:00)
[2024-01-09] MEDS ORDERED: Furosemide 20 MG TAB PO SCH (09:00)
[2024-01-09] MEDS ORDERED: Multivitamin W/ Minerals 1 TAB PO SCH (09:00)
[2024-01-09] MEDS ORDERED: Senokot S 8.6-50 MG TAB PO SCH (09:00)
[2024-01-09] MEDS ORDERED: Non-Formulary Item 1 EACH (Multivitamin/Iron/Folic Acid [Centrum Adults Tablet] 1 EACH Ta PO SCH (09:00)
[2024-01-09] MEDS ORDERED: CO Q-10 CAPSULE 100 MG PO SCH (09:00)
[2024-01-09] MEDS ORDERED: Loratadine 10 MG TAB PO SCH (09:00)
[2024-01-09] MEDS ORDERED: Isosorbide Mononitrate 60 MG ER.TAB PO SCH (09:00)
[2024-01-09] MEDS ORDERED: dilTIAZem CD 180 MG CAP PO SCH (09:00)
[2024-01-09] MEDS ORDERED: Vit A,C & E/Lutein/Minerals Tablet PO SCH (09:00)
== END 2024-01-09 13:40 | disposition home or self-care (01) ==
LOC: SDC 09:16 → SURG B 15:48 → SDC 01-09 13:40
PROVIDERS: ATTEND Orthopaedic Surgery
PROC: 0SRC0JZ Replacement of Right Knee Joint with Synthetic Substitute, Open Approach (ICD-10-PCS; principal; 2024-01-08)
PROC: 3E0T3BZ Introduction of Anesthetic Agent into Peripheral Nerves and Plexi, Percutaneous Approach (ICD-10-PCS; 2024-01-08)
DX: M17.11 Unilateral primary osteoarthritis, right knee (principal); I10 Essential (primary) hypertension; I25.10 Atherosclerotic heart disease of native coronary artery without angina pectoris; E78.00 Pure hypercholesterolemia, unspecified; E03.9 Hypothyroidism, unspecified; H26.9 Unspecified cataract; Z90.710 Acquired absence of both cervix and uterus; Z90.89 Acquired absence of other organs; Z90.49 Acquired absence of other specified parts of digestive tract; Z96.652 Presence of left artificial knee joint; Z88.1 Allergy status to other antibiotic agents; Z88.2 Allergy status to sulfonamides; Z79.890 Hormone replacement therapy; Z79.1 Long term (current) use of non-steroidal anti-inflammatories (NSAID); Z79.899 Other long term (current) drug therapy
CPT/HCPCS: 0055T; 27447; 64448; A4306; C1713; C1776; C1889; J0171; J0665; J1100; J1885; J2250; J2405; J2704; J2795; J3010; J3370-JW